=== PATIENT | male | born 1945 | race Caucasian/White ===

== ENCOUNTER → 2021-06-17 | Outpatient (CLI) | payer OTHER ==
--- NOTE | 2021-06-17 11:17 | KCIC ---
EXAM: CT coronary artery calcium screening; radiologist over read. HISTORY: Hypertension. Hypercholesterolemia. TECHNIQUE: Computed tomographic images of the chest were obtained without contrast. Multiplanar refor matting was performed. *One or more of the following individualized dose reduction techniques were utilized for this examina tion: 1. Automated exposure control. 2. Adjustment of the mA and/or kV according to patient size. 3. Use of iterative reconstruction technique. COMPARISON: None. FINDINGS: There is calcified atherosclerotic plaque involving the coronary arteries. The heart is nor mal in size. The aorta is normal in caliber. No pathologically enlarged lymph node is seen. There is a tiny hiatal hernia. There is no infiltrate, pleural effusion or pneumothorax. There is posterior de pendent and basilar atelectasis. There is no suspicious pulmonary nodule. There is no acute finding i nvolving the upper abdomen. There are degenerative changes involving the spine. Coronary artery calcium score: Left main artery - 36.4 Left anterior descending - 129.3 Left circumflex - 10.8 Right coronary artery - 338.4 TOTAL = 514.8 IMPRESSION: 1. Coronary artery calcium score of 514.8. There is a large amount of coronary artery calcification. 2. No significant incidental thoracic finding. Electronically signed by: Emelyn Song MD (06/17/2021 11:15 AM) [id number]
== END ==
LOC: KCIC CT 10:05
PROVIDERS: ATTEND Family Medicine
DX: Z13.6 Encounter for screening for cardiovascular disorders (principal); I25.10 Atherosclerotic heart disease of native coronary artery without angina pectoris; J98.11 Atelectasis; N52.9 Male erectile dysfunction, unspecified; M47.819 Spondylosis without myelopathy or radiculopathy, site unspecified
CPT/HCPCS: 75571